=== PATIENT | male | born 1975 | race Caucasian/White ===

== ENCOUNTER 2016-10-18 23:32 | Emergency (ER) | payer OTHER ==
[~2016-10-18] VITALS: Ht 182.9 cm; Wt 110.7 kg
[2016-10-19 01:34] VITALS: BP 133/86
== END 2016-10-19 01:36 | disposition home or self-care (01) ==
LOC: EME 23:32
PROC: 08C0XZZ Extirpation of Matter from Right Eye, External Approach (ICD-10-PCS; principal; 2016-10-18)
DX: T15.91XA Foreign body on external eye, part unspecified, right eye, initial encounter (principal); W20.8XXA Other cause of strike by thrown, projected or falling object, initial encounter; F17.200 Nicotine dependence, unspecified, uncomplicated
CPT/HCPCS: 99281; 99283

== ENCOUNTER 2016-11-10 12:47 | Emergency (ER) | payer OTHER ==
[~2016-11-10] VITALS: Ht 182.9 cm; Wt 107.3 kg
[2016-11-10 17:22] VITALS: BP 114/68
== END 2016-11-10 17:22 | disposition home or self-care (01) ==
LOC: EME 12:47
PROC: 0CQ0XZZ Repair Upper Lip, External Approach (ICD-10-PCS; principal; 2016-11-10)
DX: S01.511A Laceration without foreign body of lip, initial encounter (principal); W21.07XA Struck by softball, initial encounter
CPT/HCPCS: 70150; 99281; 99283